=== PATIENT | female | born 1960 | race Caucasian/White ===

== ENCOUNTER 2018-03-17 07:09 | Outpatient (CLI) | payer OTHER | END 2018-03-17 07:10 | disposition home or self-care (01) | LOC: BICULT 07:09 | PROVIDERS: ATTEND Family Medicine | DX: N95.0 Postmenopausal bleeding (principal) | CPT/HCPCS: 76856 ==

== ENCOUNTER 2018-04-04 07:36 | Outpatient (CLI) | payer OTHER | END 2018-04-04 07:37 | disposition home or self-care (01) | LOC: BICMAMMO 07:36 | PROVIDERS: ATTEND Family Medicine | DX: Z12.31 Encounter for screening mammogram for malignant neoplasm of breast (principal) | CPT/HCPCS: 77063; 77067 ==

== ENCOUNTER 2018-06-12 10:56 | Outpatient (CLI) | payer OTHER ==
[2018-06-12 12:18] LABS: Hemoglobin 15.7 g/dL (12.0-16.0); Mean Corpuscular HGB CONC 34.5 g/dL (32.0-36.0); Mean Corpuscular Hemoglobin 31.3 pg (27.0-31.0); Mean Platelet Volume 7.4 fL (7.4-10.4); Platelet Count 245 thou/uL (130-400); RBC Distribution Width 11.7 % (11.5-14.5)
[2018-06-12 12:44] LABS: Anion Gap 18 mmol/L (10-20); BUN (Urea Nitrogen) 11 mg/dL (9.8-20.1); Calc. Creatinine Clearance 0 mL/min (70-130); Calcium 9.5 mg/dL (7.8-10.44); Carbon Dioxide 19 mmol/L (22-29); Chloride 103 mmol/L (98-107); Estimated GFR-MDRD 81; Glucose 218 mg/dL (70-105); Sodium 136 mmol/L (136-145)
--- NOTE | 2018-06-12 22:39 | EKG ---
Test Reason : Blood Pressure : / mmHG Vent. Rate : 095 BPM Atrial Rate : 095 BPM P-R Int : 140 ms QRS Dur : 084 ms QT Int : 368 ms P-R-T Axes : 062 -04 -04 degrees QTc Int : 462 ms Normal sinus rhythm Nonspecific ST abnormality Abnormal ECG No previous ECGs available Confirmed by Ac ARAUJO ([id number]) on 06/12/2018 10:39:22 PM Referred By: DIDIER Confirmed By:Ac ARAUJO
== END 2018-06-12 10:57 | disposition home or self-care (01) ==
LOC: LABBT 10:56
PROVIDERS: ATTEND Student in an Organized Health Care Education/Training Program
DX: Z01.818 Encounter for other preprocedural examination (principal); N85.01 Benign endometrial hyperplasia; N95.0 Postmenopausal bleeding
CPT/HCPCS: 80048; 85027; 86850; 86900; 86901; 93005; 93010

== ENCOUNTER 2018-06-12 11:00 | Inpatient (IN) | payer OTHER ==
[2018-06-12 11:33] VITALS: BMI 29.0
[2018-06-13] MEDS ORDERED: Gabapentin 300 MG CAP ONE (06:38)
[2018-06-13] MEDS ORDERED: Bupivacaine HCl 0.5%/Epinephrine 1:200,000/PF 30 ml Vial ONE (06:39)
[2018-06-13] MEDS ORDERED: Famotidine/PF 20 mg/2ml Vial ONE (06:39)
[2018-06-13] MEDS ORDERED: CeleCOXIB 100 MG CAP ONE (06:40)
[2018-06-13] MEDS ORDERED: Fentanyl 250 MCG/5 ML VIAL ONE (06:48)
[2018-06-13] MEDS ORDERED: Dexmedetomidine 200 MCG/2 ML VIAL ONE (07:00)
[2018-06-13] MEDS ORDERED: Fentanyl 100 MCG/2 ML VIAL ONE ×2 (07:00→09:46)
[2018-06-13] MEDS ORDERED: Ketamine 50 MG/ML VIAL ONE (07:00)
[2018-06-13] MEDS ORDERED: Midazolam HCl 2 mg/2 ml Vial ONE (07:17)
[2018-06-13] MEDS ORDERED: Levofloxacin 500 mg/D5W 100 ml Premix Bag ONE (07:23)
[2018-06-13] MEDS ORDERED: Clindamycin/D5W 900 mg/50 ml Premix Bag ONE (07:23)
[2018-06-13] MEDS ORDERED: Simethicone Chewable 80 MG TAB PO PRN (09:36)
[2018-06-13] MEDS ORDERED: Dextrose 50% Abboject 50 ML SYRINGE SLOW IVP PRN (09:36)
[2018-06-13] MEDS ORDERED: Dextrose 5% in Water 1,000 ML IV PRN (09:36)
[2018-06-13] MEDS ORDERED: Zolpidem Tartrate 5 MG TAB PO PRN (09:36)
[2018-06-13] MEDS ORDERED: Insulin Regular 300 UNITS/3 ML VIAL SC PRN (09:36)
[2018-06-13] MEDS ORDERED: Ondansetron HCl/PF 4 MG/2 ML Vial IVP PRN ×2 (09:36→09:37)
[2018-06-13] MEDS ORDERED: traMADol HCl 50 MG TAB PO PRN ×2 (09:36)
[2018-06-13] MEDS ORDERED: diphenhydrAMINE 25 MG CAP PO PRN (09:36)
[2018-06-13] MEDS ORDERED: Bisacodyl 10 MG SUPP PR PRN (09:36)
[2018-06-13] MEDS ORDERED: Meperidine HCl/PF 25 MG/ML VIAL SLOW IVP PRN (09:37)
[2018-06-13] MEDS ORDERED: Promethazine HCl 25 MG/ML VIAL SLOW IVP PRN (09:37)
[2018-06-13] MEDS ORDERED: Promethazine HCl 25 MG/ML VIAL IM PRN (09:37)
[2018-06-13] MEDS ORDERED: Metoprolol Tartrate 5 MG/5 ML VIAL IVP PRN (09:41)
[2018-06-13] MEDS ORDERED: Fentanyl 100 MCG/2 ML VIAL SLOW IVP PRN (09:57)
[2018-06-13] MEDS ORDERED: Promethazine HCl 25 MG/ML VIAL ONE (10:13)
--- NOTE | 2018-06-13 10:54 | OP ---
DATE OF OPERATION: 06/13/2018 PREOPERATIVE DIAGNOSIS: Complex atypical endometrial hyperplasia. POSTOPERATIVE DIAGNOSES: 1. Complex atypical endometrial hyperplasia. 2. Bulbar pigmentation. PROCEDURE: Robotic-assisted total laparoscopic hysterectomy, bilateral salpingectomy and left vulva r biopsy. ANESTHESIA: General endotracheal. ATTENDING SURGEON: Valery Rivas M.D. CLIENT RELATIONSHIP EXECUTIVE: Roselyn Wolfe M.D. ESTIMATED BLOOD LOSS: 50 mL. INTRAVENOUS FLUIDS: 1200 mL crystalloid. URINE OUTPUT: 250 mL of clear urine. COMPLICATIONS: None. DRAINS: Koch catheter. PATHOLOGY: Uterus, cervix, bilateral fallopian tubes, left vulvar biopsy. FINDINGS: Mobile 7 week sized uterus sounded to 6 cm on exam, cervix is normal appearing. There was a small, approximately 2 cm subserosal left lateral fibroid. The ovaries and fallopian tubes were n ormal appearing, ureters were noted running laterally in the pelvic sidewall and vermiculating during the case and there were no bladder injuries upon backfilling of the bladder. There was excellent he mostasis on low pressure check. OPERATIVE TECHNIQUE: The patient was taken to the operating room where general anesthesia was obtain ed without difficulty. The patient was prepped and draped in a sterile fashion in the dorsal lithoto my position. A Koch catheter was placed in the bladder. Speculum was placed in the vagina. Immedi ately upon examination of the genital area the bulbar pigmentation was noted. This was an approximat anushka 4 x 5 area on the left buttock. There were also verrucous type skin tag appearing lesions surrou nding this pigmented area and there was one approximately 0.5 x 0.5 cm verrucous lesion on the right buttock as well. The pigmentation had irregular borders and variable degrees of pigmentation not con sistent with benign nevus or melanosis. Therefore, the decision was made to biopsy. A 4 mm punch bi opsy was performed of this area. In addition, a 15 blade was used to superficially excise some of th e pigmented area and send for final pathology. Hemostasis was achieved with a single mattress suture of 2-0 Vicryl. The cervix was then grasped with a single tooth tenaculum and the uterus sounded to 6 cm. The JEIMY manipulator was assembled with a 6 cm tip and a 3.5 cm colpotomizer ring. The tip wa s inserted to the uterine fundus, tip balloon was inflated, instruments were removed from the vagina, colpotomizer ring was advanced to fit snugly around the cervix. Legs were placed in low lithotomy. Attention was turned to the abdomen. 0.5% Marcaine with epinephrine was infiltrated into the umbili cus and a 12 mm skin incision was made. The Veress needle was passed into the abdomen noting an open ing pressure of 5 mmHg. Pneumoperitoneum was obtained without difficulty with a maximum pressure of 15 mmHg. The Veress needle was removed. A 12 mm trocar was inserted into the abdomen and confirmed placement with the robotic camera. Steep Trendelenburg was obtained. There was a large amount of intraabdominal fat noted. The right a nd left lower quadrant 8 mm robotic trocars were placed under direct visualization after infiltrating with 0.5% Marcaine with epinephrine. An 11 mm dental chairside assistant port was placed in the right upper quadrant after infiltrating with 0.5% Marcaine with epinephrine under direct visualization. The robot was do cked, the right robotic arm contained monopolar scissors, left robotic arm contained a fenestrated bi polar. The left fallopian tube was grasped and elevated and the mesosalpinx at the distal end was cl amped and cauterized and transected with the scissors. The avascular portion just below the fallopia n tube was incised with the scissors on cautery and the medial portion of the fallopian tube was clam ped across, cauterized, transected, and this was removed out of the abdomen. The utero-ovarian was c auterized x2 with the fenestrated bipolar and this was incised in the middle with the scissors and th e round ligament and then cauterized in the mid portion and incised and the anterior leaf of the broa d ligament was opened as well as the posterior leaf of the broad ligament. The retroperitoneum was b luntly dissected with the fenestrated using a pushing and spreading technique and the ureter was note d in the lateral pelvic sidewall and also retroperitoneally. The vessels were skeletonized with the scissors and the uterus was then retroverted and the bladder flap was developed, initially incising t he vesicouterine perineum and then incising the adventitial fibers over the pubocervical fascia. The bladder was back filled to note the bladder limitations as the bladder was very floppy and the plane was very easy on the bladder flap dissection; however, the bladder was noted to be below the level o f the colpotomizer ring and therefore these adventitial fibers were incised with the scissors to allo w the bladder to fall further away from the colpotomizer ring anteriorly. The attention was turned t o the right side where the fallopian tube was grasped and elevated. The mesosalpinx at the distal en d was cauterized and incised. The avascular portion of the mesosalpinx was then incised and the medi al portion of the fallopian tube was clamped across and cauterized and transected and removed out of the abdomen. The utero-ovarian was cauterized with the fenestrated and incised with the scissors. T he round ligament was cauterized in the mid portion and incised with the scissors. The posterior suzy f was then dropped down to the level of the uterosacral ligament. Again on this side, the ureter was noting running laterally in the pelvic sidewall and well away from the area of the colpotomizer ring where the vessels would be cauterized. Retroperitoneal dissection using the blunt method as prevmichelle jean described allowed the ureter to fall even further away from the uterine pedicle. The bladder fla p on the right side was then developed again backfilling the bladder to ensure bladder was well away from the area and then decompressing the bladder and incising on cautery with the scissors and bluntl y dissecting down below the level of the colpotomizer ring. The vessels were skeletonized adequately on the right side as well and then they were clamped at the level of the internal cervical os and ca uterized including the artery and the vein. The left vessels were also cauterized and anterior colpo sagrario was then performed and then posterior colpotomy was performed. The vessels were the last to be incised and the vessels were incised just above the level of the internal os, this allowed them to ma ke a pedicle to fall away from the lateral cuff edges and the vascular pedicle was also dissected shirley y from the edge of the vaginal cuff medially with the scissors. Once the uterus had been completely transected, the uterus was placed into the vagina as a means to maintain pneumoperitoneum. Irrigatio n was performed of the vaginal cuff and suctioned. The bladder was back filled a final time and no b ladder injury was observed and no seepage of saline was noted. The scissors were traded out for the needle tow bar driver. The vaginal cuff was closed with a #2-0 barbed suture with PDS in a running fashion i ncorporating vaginal mucosa and posterior peritoneum in each bite with excellent hemostasis noted and excellent closure. The needle was removed out of the abdomen. Again, the pelvis was irrigated and suctioned and low pressure check was performed with excellent hemostasis noted. All instruments were removed out of the abdomen. The ports were also removed after releasing pneumoperitoneum. The robo t was undocked. The fascia of the umbilical port was closed with 0 Vicryl in a running fashion. The skin was closed with 4-0 Monocryl in subcuticular fashion. Dermabond was applied. All instruments removed from the vagina. The vaginal cuff was checked and no active bleeding was noted. The patient tolerated the procedure well. Sponge and needle counts were correct x2. The patient was taken to r ecovery in stable condition. The patient received clindamycin, Levaquin per [facility] protocol prior to the procedure.
[2018-06-13] MEDS: Acetaminophen 500 MG TAB PO SCH ×3 (11:34→23:32)
[2018-06-13] MEDS: Ketorolac Tromethamine 30 MG/ML VIAL IVP SCH ×3 (12:32→23:50)
[2018-06-13] MEDS ORDERED: PROPOFOL 200 MG/20 ML VIAL ONE (13:44)
[2018-06-13] MEDS ORDERED: Glycopyrrolate 0.2 MG/ML 5 ML SYRINGE ONE (13:44)
[2018-06-13] MEDS ORDERED: Ketorolac Tromethamine 30 MG/ML VIAL ONE (13:44)
[2018-06-13] MEDS ORDERED: PHENYLEPHRINE-NS 100 MCG/ML 10 ML SYRINGE ONE (13:44)
[2018-06-13] MEDS ORDERED: Lidocaine 1% PF 5 ML VIAL ONE (13:44)
[2018-06-13] MEDS ORDERED: Ondansetron HCl/PF 4 MG/2 ML Vial ONE (13:44)
[2018-06-13] MEDS: Lactated Ringer's 1,000 ML IV SCH (15:05)
[2018-06-13] MEDS: metFORMIN 500 MG TAB PO SCH (17:41)
[2018-06-13] MEDS: Docusate Calcium (SURFAK) 240 MG CAP PO SCH (22:02)
[2018-06-13] MEDS: Gabapentin 300 MG CAP PO SCH (22:02)
[2018-06-14] MEDS: Acetaminophen 500 MG TAB PO SCH (05:07)
[2018-06-14] MEDS: Ketorolac Tromethamine 30 MG/ML VIAL IVP SCH (05:39)
[2018-06-14 06:33] LABS: Hemoglobin 13.8 g/dL (12.0-16.0); Mean Corpuscular HGB CONC 34.2 g/dL (32.0-36.0); Mean Corpuscular Hemoglobin 31.7 pg (27.0-31.0); Mean Corpuscular Volume 92.7 fL (78.0-98.0); Mean Platelet Volume 7.4 fL (7.4-10.4); Platelet Count 200 thou/uL (130-400); RBC Distribution Width 11.7 % (11.5-14.5); Red Blood Cell (RBC) Count 4.37 mill/uL (4.20-5.40); White Blood Cell (WBC) Count 10.1 thou/uL (4.8-10.8)
[2018-06-14 07:57] VITALS: BP 159/75; TEMP 98
[2018-06-14] MEDS: Docusate Calcium (SURFAK) 240 MG CAP PO SCH (08:37)
[2018-06-14] MEDS: metFORMIN 500 MG TAB PO SCH (08:37)
[2018-06-14] MEDS: Gabapentin 300 MG CAP PO SCH (08:48)
[2018-06-14] MEDS ORDERED: Nicotine 21 MG PATCH TD SCH (09:00)
--- NOTE | 2018-06-15 07:03 | DIS ---
DATE OF ADMISSION: 06/13/2018 DATE OF DISCHARGE: 06/14/2018 ADMISSION DIAGNOSIS: Complex atypical hyperplasia. DISCHARGE DIAGNOSES: Status post robotic assisted total laparoscopic hysterectomy, bilateral salping ectomy, and bone marrow biopsy. DISCHARGE CONDITION: Stable. ATTENDING PHYSICIAN: Valery Rivas MD CONSULTATIONS: None. PROCEDURES: As listed in the discharge diagnoses. HISTORY AND PHYSICAL: Please see previously dictated H&P. HOSPITAL COURSE: A 57-year-old presented today to undergo scheduled surgery as above. She had an un complicated procedure with estimated blood loss of 50 mL. She was admitted to the protocol and postoperatively went onto the floor and pain was managed on IV Toradol, p.o. Tylenol, tramadol, and gabapentin, which controlled her pain well on postoperative day #1. She had blood sugars checked kane ry 4 hours that was slightly hyperglycemic in the low 200 range. She refused her sliding scale insul in doses and was continued on her home metformin and was instructed on continuation of diabetic diet and Accu-Cheks upon discharge with informing our office if blood sugars greater than 250. She had vi gregg signs within normal limits. She had good urine output and was able to ambulate and void without difficulty prior to discharge. Her final pathology is pending at the time of discharge and postopera tive hemoglobin was 13.8, hematocrit 40.5. Her exam was completely benign. Her incisions were clean , dry, and intact. She had scant vaginal bleeding and pulse ox were within normal limits. She is in structed on decreasing her nicotine intake on discharge and will follow up with me in 2 weeks postope rative time.
[2018-06-18] MEDS ORDERED: Ibuprofen 800 MG TAB PO SCH (14:00)
== END 2018-06-14 09:50 | disposition home or self-care (01) | DRG 743 ==
LOC: SURG A 06-13 05:49 → 3SE 06-13 12:27
PROVIDERS: ADMIT Student in an Organized Health Care Education/Training Program; ATTEND Student in an Organized Health Care Education/Training Program
PROC: 0UT9FZZ Resection of Uterus, Via Natural or Artificial Opening With Percutaneous Endoscopic Assistance (ICD-10-PCS; principal; 2018-06-13)
PROC: 0UT74ZZ Resection of Bilateral Fallopian Tubes, Percutaneous Endoscopic Approach (ICD-10-PCS; 2018-06-13)
PROC: 0UBMXZX Excision of Vulva, External Approach, Diagnostic (ICD-10-PCS; 2018-06-13)
PROC: 8E0W4CZ Robotic Assisted Procedure of Trunk Region, Percutaneous Endoscopic Approach (ICD-10-PCS; 2018-06-13)
PROC: 8E0W4CZ Robotic Assisted Procedure of Trunk Region, Percutaneous Endoscopic Approach (ICD-10-PCS; 2018-06-13)
DX: N85.02 Endometrial intraepithelial neoplasia [EIN] (principal); N85.01 Benign endometrial hyperplasia; N95.0 Postmenopausal bleeding; L81.8 Other specified disorders of pigmentation; F17.210 Nicotine dependence, cigarettes, uncomplicated
CPT/HCPCS: 36415; 36416; 80048; 85027; 86850; 86900; 86901; 88305; 88307; 93005; 93010; 96374; 96375; A4216; J0131; J0670; J1815; J1885; J1956; J2001; J2250; J2405; J2550; J2704; J3010; J3490; S0028

== ENCOUNTER 2018-09-21 09:32 | Outpatient (CLI) | payer OTHER ==
[2018-09-21 10:50] LABS: Hemoglobin 15.8 g/dL (12.0-16.0); Mean Corpuscular HGB CONC 32.5 g/dL (32.0-36.0); Mean Corpuscular Hemoglobin 30.2 pg (27.0-31.0); Mean Corpuscular Volume 92.9 fL (78.0-98.0); Mean Platelet Volume 7.5 fL (7.4-10.4); Platelet Count 241 thou/uL (130-400); RBC Distribution Width 12.9 % (11.5-14.5); Red Blood Cell (RBC) Count 5.22 mill/uL (4.20-5.40); White Blood Cell (WBC) Count 9.8 thou/uL (4.8-10.8)
[2018-09-21 11:12] LABS: Anion Gap 19 mmol/L (10-20); BUN (Urea Nitrogen) 11 mg/dL (9.8-20.1); Calc. Creatinine Clearance 0 mL/min (70-130); Calcium 9.2 mg/dL (7.8-10.44); Carbon Dioxide 24 mmol/L (22-29); Chloride 99 mmol/L (98-107); Estimated GFR-MDRD 73; Glucose 152 mg/dL (70-105); Potassium 3.5 mmol/L (3.5-5.1); Sodium 138 mmol/L (136-145)
--- NOTE | 2018-09-21 17:15 | EKG ---
Test Reason : Blood Pressure : / mmHG Vent. Rate : 100 BPM Atrial Rate : 100 BPM P-R Int : 140 ms QRS Dur : 080 ms QT Int : 350 ms P-R-T Axes : 065 010 017 degrees QTc Int : 451 ms Normal sinus rhythm Right atrial enlargement Cannot rule out Anterior infarct , age undetermined mild st depression inferior leads Abnormal ECG When compared with ECG of 12-JUN-2018 12:04, No significant change was found Confirmed by DR. Kary SERRANO ([id number]) on 09/21/2018 5:15:35 PM Referred By: ALBA Confirmed By:DR. Kary SERRANO
== END 2018-09-21 09:33 | disposition home or self-care (01) ==
LOC: LABBT 09:32
PROVIDERS: ATTEND Student in an Organized Health Care Education/Training Program
DX: Z01.818 Encounter for other preprocedural examination (principal); N90.3 Dysplasia of vulva, unspecified
CPT/HCPCS: 80048; 85027; 86850; 86900; 86901; 93005; 93010

== ENCOUNTER 2018-09-22 07:08 | Day surgery (SDC) | payer OTHER ==
[2018-09-21 09:36] VITALS: BMI 27.3
[2018-09-22] MEDS ORDERED: HYDROcodone/Acetaminophen 5/325 mg Tablet ONE (08:50)
[2018-09-22] MEDS ORDERED: CeleCOXIB 100 MG CAP ONE (08:51)
[2018-09-22] MEDS ORDERED: Gabapentin 300 MG CAP ONE (08:51)
[2018-09-22] MEDS ORDERED: CEFAZOLIN 1 GM VIAL ONE (09:08)
[2018-09-22] MEDS ORDERED: Midazolam HCl 2 mg/2 ml Vial ONE (09:08)
[2018-09-22] MEDS ORDERED: CEFAZOLIN 2 GM/50 ML BAG ONE (09:08)
[2018-09-22] MEDS ORDERED: Bupivacaine/Epinephrine 0.25% 30 ML VIAL ONE (09:12)
[2018-09-22] MEDS ORDERED: Fentanyl 100 MCG/2 ML VIAL ONE (09:21)
[2018-09-22] MEDS ORDERED: Famotidine/PF 20 mg/2ml Vial ONE (09:21)
[2018-09-22] MEDS ORDERED: Albuterol Sulfate HFA (OR ONLY) ONE (10:26)
--- NOTE | 2018-09-22 13:26 | OP ---
DATE OF OPERATION: 09/22/2018 PREOPERATIVE DIAGNOSIS: Vulvar atypia and vulvar growths. POSTOPERATIVE DIAGNOSIS: Vulvar atypia and vulvar growths. PROCEDURE PERFORMED: Wide local excision, excisional biopsy of vulvar and buttock growth. ANESTHESIA: General endotracheal. ATTENDING SURGEON: Valery Rivas M.D. COMPUTER PROGRAMMING MANAGER SURGEON: None. ESTIMATED BLOOD LOSS: 10 mL. INTRAVENOUS FLUIDS: 1500 mL crystalloid. URINE OUTPUT: 50 mL of clear urine. PATHOLOGY: 1. Left vulvar lesion. 2. Left buttock growth. 3. Right buttock growth. FINDINGS: A 7.5 x 2.5 cm pigmented, slightly irregularly raised vulvar lesion on the left labia alejandro ra, previously biopsied and atypical cells were present. There was a 1 cm right and left buttock jos wth that were pigmented . There were additional 1-2 mm nodular growth scattered on buttocks uday aterally, 3 on each side that were excised and sent for pathology with the buttock growth on the resp ective side. COMPLICATIONS: None. DRAINS: None. OPERATIVE TECHNIQUE: The patient was taken to the operating room where general anesthesia was obtain ed without difficulty. The patient was prepped and draped in a sterile fashion in the dorsal lithoto my position. The skin on the left vulvar lesion was marked with a marking pen and subsequently injec ella with 0.5% Marcaine with epinephrine. The additional lesions were also marked with a marking pen and injected subcutaneously with 0.5% Marcaine with epinephrine. The large left vulvar lesion was in cised with the knife on the border of the previously marked area and Allis clamps were placed on the edges of the specimen and the underlying subcutaneous tissue was incised with a knife until the speci men was completely excised. The specimen was marked at the 12 o'clock position and hemostasis was ac hieved of the underlying subcutaneous tissue with the Bovie. The subcutaneous tissue was then reappr oximated with 2-0 Vicryl in horizontal mattress sutures x2 layers to ensure tension was relieved off of the skin. The skin was then closed with a 2-0 Vicryl in vertical mattress sutures and hemostasis was noted to be excellent. The additional lesions on bilateral buttocks were then grasped with kayu ps and incised with the Bovie and sent for final pathology. Hemostasis was achieved of these areas w ith the Bovie and a stitch was placed on the larger buttock growth on the right and left side x1 with 2-0 Vicryl with noting excellent hemostasis. The area was then cleansed and irrigated and a Tegader m dressing was applied. The patient tolerated the procedure well. Sponge, lap, and needle counts we re correct x2. The patient was taken to recovery in stable condition. Patient received Ancef 2 gram s prior to the procedure.
[2018-09-22] MEDS ORDERED: PHENYLEPHRINE-NS 100 MCG/ML 10 ML SYRINGE ONE (13:33)
[2018-09-22] MEDS ORDERED: PROVENTIL INHALER 6.7 G (200 INHALATIONS) ONE (13:33)
[2018-09-22] MEDS ORDERED: PROPOFOL 200 MG/20 ML VIAL ONE (13:33)
[2018-09-22] MEDS ORDERED: Ondansetron PF 4 MG/2 ML Vial ONE (13:33)
[2018-09-22] MEDS ORDERED: Lidocaine 1% PF 5 ML VIAL ONE (13:33)
[2018-09-22] MEDS ORDERED: Metoclopramide HCl 10 MG/2 ML VIAL ONE (13:33)
[2018-09-22] MEDS ORDERED: Ketorolac Tromethamine 30 MG/ML VIAL ONE (13:33)
[2018-09-22] MEDS ORDERED: Dexamethasone 20 MG/5 ML VIAL ONE (13:33)
[2018-09-22] MEDS ORDERED: Glycopyrrolate 0.2 MG/ML 5 ML SYRINGE ONE (13:33)
== END 2018-09-22 11:55 | disposition home or self-care (01) ==
LOC: SDC 07:08
PROVIDERS: ATTEND Student in an Organized Health Care Education/Training Program
PROC: 0UBMXZZ Excision of Vulva, External Approach (ICD-10-PCS; principal; 2018-09-22)
PROC: 0HB8XZZ Excision of Buttock Skin, External Approach (ICD-10-PCS; principal; 2018-09-22)
DX: N90.1 Moderate vulvar dysplasia (principal); L91.8 Other hypertrophic disorders of the skin; F17.210 Nicotine dependence, cigarettes, uncomplicated; D86.9 Sarcoidosis, unspecified; E11.9 Type 2 diabetes mellitus without complications; Z79.84 Long term (current) use of oral hypoglycemic drugs; Z79.899 Other long term (current) drug therapy; Z88.0 Allergy status to penicillin
CPT/HCPCS: 88304; 88305; 88307; J0131; J0690; J2250; J3010; S0028

== ENCOUNTER 2018-10-09 10:49 | Emergency (ER) | payer OTHER ==
--- NOTE | 2018-10-09 13:03 | ULT ---
LEFT LOWER EXTREMITY VENOUS DUPLEX EXAM: History: Left leg pain. FINDINGS: Real-time color doppler evaluation of the left lower extremity was performed from groin to calf. This includes evaluation of the common femoral, superficial, and profunda femoral, popliteal and posterio r tibial veins. This shows a patent deep venous system with normal compressibility and augmentation. No evidence of D VT. IMPRESSION: No evidence of DVT of the left lower extremity. POS: [facility]
--- NOTE | 2018-10-09 15:12 | RAD ---
LEFT KNEE FOUR VIEW 10/09/18 HISTORY: Pain and swelling. COMPARISON: None. FINDINGS: There is a large joint effusion. No acute displaced fracture is appreciated. Moderate sized medial an d lateral compartment osteophytes are present. Possibility of a small calcified body within the suprapatellar recess measuring 2-3 mm. IMPRESSION: Large joint effusion without displaced fracture. Without a history of trauma, synovitis or septic art hritis is of concern. Joint aspiration may be beneficial. POS: [facility]
== END 2018-10-09 14:30 | disposition home or self-care (01) ==
LOC: SCSER 10:49
DX: M25.462 Effusion, left knee (principal); M25.562 Pain in left knee; F17.210 Nicotine dependence, cigarettes, uncomplicated; I10 Essential (primary) hypertension; Z71.6 Tobacco abuse counseling
CPT/HCPCS: 99406

== ENCOUNTER 2019-06-04 07:51 | Outpatient (CLI) | payer OTHER ==
--- NOTE | 2019-06-04 08:20 | MMO ---
Bilateral MAMMO Bilat Screen [facility]. CLINICAL HISTORY: Patient is 58 years old and is seen for screening. The patient has no family history of breast cancer. The patient has no personal history of cancer. The patient has a history of left Ultrasound Guided Core Biopsy in April, - benign and bilateral Excisional Biopsy in August, - Benign (inflammation) biopsy. VIEWS: The views performed were: bilateral craniocaudal with tomosynthesis and bilateral mediolateral oblique with tomosynthesis. FILMS COMPARED: The present examination has been compared to prior imaging studies performed at [facility] on 04/24/2012, 05/07/2013, 06/10/2014 and 04/04/2018. MAMMOGRAM FINDINGS: There are scattered fibroglandular densities. There is a stable biopsy clip seen in the left breast. There are benign scattered densities in both breasts. There are no suspicious masses, suspicious calcifications, or new areas of architectural distortion. IMPRESSION: THERE IS NO MAMMOGRAPHIC EVIDENCE OF MALIGNANCY. A ROUTINE FOLLOW-UP MAMMOGRAM IN 1 YEAR IS RECOMMENDED. THE RESULTS OF THIS EXAM WERE SENT TO THE PATIENT. ACR BI-RADS Category 2 - Benign finding MAMMOGRAPHY NOTE: 1. A negative mammogram report should not delay a biopsy if a dominant of clinically suspicious mass is present. 2. Approximately 10% to 15% of breast cancers are not detected by mammography. 3. Adenosis and dense breasts may obscure an underlying neoplasm. Reported by: SHARMAINE MURPHY MD Electonically Signed: [id number]
== END 2019-06-04 07:52 | disposition home or self-care (01) ==
LOC: BICMAMMO 07:51
PROVIDERS: ATTEND Family Medicine
DX: Z12.31 Encounter for screening mammogram for malignant neoplasm of breast (principal)
CPT/HCPCS: 77063; 77067

== ENCOUNTER 2022-03-08 07:41 | Outpatient (CLI) | payer OTHER | END 2022-03-08 07:42 | disposition home or self-care (01) | LOC: BICMAMMO 07:41 | PROVIDERS: ATTEND Family Medicine | DX: Z12.31 Encounter for screening mammogram for malignant neoplasm of breast (principal); Z91.89 Other specified personal risk factors, not elsewhere classified | CPT/HCPCS: 77063; 77067 ==